=== PATIENT | female | born 2000 | race Caucasian/White ===

== ENCOUNTER 2020-07-26 12:23 | Emergency (ER) | payer OTHER ==
[~2020-07-26] VITALS: Ht 152.4 cm; Wt 45.4 kg
[2020-07-26] MEDS ORDERED: DICLOFENAC SOD50 M1 PO (13:35)
[2020-07-26] MEDS ORDERED: FLEXERIL PO (13:35)
[2020-07-26 13:41] VITALS: BP 115/75
== END 2020-07-26 13:41 | disposition home or self-care (01) ==
LOC: M.ERS 12:23
DX: S13.4XXA Sprain of ligaments of cervical spine, initial encounter (principal); S20.222A Contusion of left back wall of thorax, initial encounter; V89.2XXA Person injured in unspecified motor-vehicle accident, traffic, initial encounter; Y93.89 Activity, other specified; Y92.89 Other specified places as the place of occurrence of the external cause; Y99.8 Other external cause status